=== PATIENT | male | born 1950 | race Caucasian/White ===

== ENCOUNTER 2020-01-24 17:15 | Inpatient (IN) ==
[2020-01-24] MEDS ORDERED: Ondansetron 4 MG/2 ML VIAL IVP ONE (17:42)
[2020-01-24] MEDS ORDERED: Ketorolac 15 MG/ML VIAL IVP ONE (17:42)
[2020-01-24] MEDS ORDERED: 0.9 % Sodium Chloride 1,000 ML IVC ONE (17:42)
[2020-01-24 18:29] LABS: Hematocrit 27.5 % (37.5-50.1); Hemoglobin 9.4 g/dL (12.9-16.9); Immature Granulocytes % 0.7 % (0-4); Lymphocytes % 9.5 %; Mean Corpuscular HGB Conc 34.2 g/dL (31.6-35.5); Mean Corpuscular Hemoglobin 34.1 pg (28.0-33.3); Mean Corpuscular Volume 99.6 fL (83.0-100.0); Red Blood Count 2.76 M/mcL (4.19-5.50); Red Cell Distribution Width 13.2 % (11.5-14.5)
[2020-01-24 18:31] LABS: Immature Platelets 6.5 % (1.1-6.1); Lymphocytes # 0.6 K/mcL (0.6-4.6); Mean Platelet Volume 11.6 fL (9.4-12.4); Monocytes # 0.2 K/mcL (0.0-1.3); Monocytes % 2.7 %; Neutrophils # 5.1 K/mcL (1.6-8.9); Segmented Neutrophils % 87.1 %; White Blood Count 5.8 K/mcL (4.3-11.1)
[2020-01-24 18:37] LABS: Platelet Count 86 K/mcL (140-400)
[2020-01-24 18:54] LABS: Albumin 3.5 g/dL (3.5-5.7); Albumin/Globulin Ratio 1.2 (1.1-2.2); Bilirubin,Total 1.4 mg/dL (0.3-1.0); Calcium 8.1 mg/dL (8.6-10.3); Potassium 2.9 mEq/L (3.5-5.1); Total Protein 6.5 g/dL (6.4-8.9); Troponin I 0.2 ng/mL (< 0.04)
[2020-01-24] MEDS ORDERED: Potassium Chloride Elixir 20 MEQ/15 ML UDC PO ONE (19:36)
[2020-01-24] MEDS ORDERED: Heparin 25,000UNIT/250ML 1/2NS 25,000 UNIT/250 ML IV.SOLN IVC SCH (19:45)
[2020-01-24] MEDS ORDERED: *HR* Heparin 5,000 UNIT/ML VIAL IVP PRN ×4 (19:45→19:53)
[2020-01-24] MEDS ORDERED: *HR* Heparin 5,000 UNIT/ML VIAL IVP ONE ×2 (19:45→19:53)
[2020-01-24] MEDS ORDERED: Ondansetron 4 MG/2 ML VIAL IVP PRN (20:36)
[2020-01-24] MEDS ORDERED: Naloxone 0.4 MG/ML INJ IVP PRN (20:36)
[2020-01-24] MEDS ORDERED: 0.9 % Sodium Chloride 1,000 ML IVC SCH (21:00)
[2020-01-24] MEDS: Heparin 25,000UNIT/250ML 1/2NS 25,000 UNIT/250 ML IV.SOLN IVC SCH (21:02)
[2020-01-24 21:27] LABS: Heparin anti-factor XA UFH < 0.04 IU/mL (0.30-0.70)
[2020-01-24 21:28] LABS: INR 1.3; Prothrombin Time 14.9 Seconds (9.4-12.1)
[2020-01-24 21:49] LABS: Adenovirus Not Detected (Not Detect); Coronavirus 229E Not Detected (Not Detect); Coronavirus HKU1 Not Detected (Not Detect); Coronavirus NL63 Not Detected (Not Detect); Coronavirus OC43 Not Detected (Not Detect)
[2020-01-24 21:52] LABS: Bordetella Pertussis Not Detected (Not Detect); Chlamydophila pneumoniae Not Detected (Not Detect); Human Metapneumovirus Not Detected (Not Detect); Human Rhinovirus/Enterovirus Not Detected (Not Detect); Influenza A Subtype 2009 H1 Not Detected (Not Detect); Influenza B Not Detected (Not Detect); Mycoplasma pneumoniae Not Detected (Not Detect); Parainfluenza Virus 1 Not Detected (Not Detect); Parainfluenza Virus 2 Not Detected (Not Detect); Parainfluenza Virus 3 Not Detected (Not Detect); Parainfluenza Virus 4 Not Detected (Not Detect); Respiratory Syncytial Virus Not Detected (Not Detect); SARS-CoV-2 DETECTED (Not Detect)
[2020-01-25 00:09] LABS: Sodium, Urine 24.3 mEq/L
[2020-01-25 00:10] LABS: Protein/Creatinine Ratio,Urine 1.21 mg/mg (0.00-0.20)
[2020-01-25 01:08] LABS: Hematocrit 25.4 % (37.5-50.1); Hemoglobin 8.6 g/dL (12.9-16.9); Immature Granulocytes % 0.6 % (0-4); Immature Platelets 5.4 % (1.1-6.1); Immature Reticulocyte % 13.4 % (11.0-38.0); Lymphocytes # 0.7 K/mcL (0.6-4.6); Mean Corpuscular HGB Conc 33.9 g/dL (31.6-35.5); Mean Corpuscular Hemoglobin 34.4 pg (28.0-33.3); Mean Corpuscular Volume 101.6 fL (83.0-100.0); Mean Platelet Volume 11.1 fL (9.4-12.4); Monocytes # 0.2 K/mcL (0.0-1.3); Monocytes % 2.9 %; Neutrophils # 4.3 K/mcL (1.6-8.9); Nucleated Red Blood Cells 0.4 /100 WBC (0); Platelet Count 76 K/mcL (140-400); Red Cell Distribution Width 13.4 % (11.5-14.5); Retculocyte # 0.02 M/mcL (0.05-0.10); Reticulocyte % 0.9 % (1.6-2.8); Segmented Neutrophils % 83.5 %; White Blood Count 5.2 K/mcL (4.3-11.1)
[2020-01-25 01:28] LABS: Albumin 3.1 g/dL (3.5-5.7); Albumin/Globulin Ratio 1.2 (1.1-2.2); Bilirubin,Total 1.1 mg/dL (0.3-1.0); Calcium 7.7 mg/dL (8.6-10.3); Globulin 2.6 g/dL (2.4-3.5); Potassium 3.3 mEq/L (3.5-5.1); Total Protein 5.7 g/dL (6.4-8.9)
[2020-01-25] MEDS: Acetaminophen 325 MG TABLET PO PRN ×2 (01:34→09:14)
[2020-01-25 04:51] LABS: Troponin I 0.17 ng/mL (< 0.04)
[2020-01-25] MEDS: amLODIPine 5 MG TABLET PO SCH (08:48)
[2020-01-25 08:53] LABS: Bacteria,Urine Few per hpf (None-Few); Bilirubin,Urine Negative (Negative); Blood,Urine Large (Negative); Clarity,Urine Turbid (Clear); Color,Urine Yellow (Yellow); Glucose,Urine (UA) Normal (Normal); Ketones,Urine Negative (Negative); Leukocyte Esterase,Urine Negative (Negative); Mucus,Urine Few per lpf (None-Few); Nitrite,Urine Negative (Negative); Protein,Urine 100 mg/dL (Neg-Trace); RBC,Urine 0-3 per hpf (0-3); Urobilinogen,Urine Normal (Normal)
[2020-01-25] MEDS ORDERED: Acetaminophen 325 MG TABLET PO PRN (10:46)
[2020-01-25 11:20] LABS: Uric Acid 9.2 mg/dL (2.3-7.6)
[2020-01-25] MEDS ORDERED: 0.9 % Sodium Chloride 1,000 ML IVC SCH (15:00)
[2020-01-25] MEDS: Aspirin Enteric Coated 81 MG Tablet PO SCH (15:30)
[2020-01-25 17:54] LABS: Hepatitis B Surface Antigen Nonreactive (Nonreactive)
[2020-01-25] MEDS: *HR* OxyCODONE/APAP 5/325 TABLET PO PRN (18:01)
[2020-01-25 18:23] LABS: Hepatitis A Antibody IgM Nonreactive (Nonreactive); Hepatitis B Core IgM Nonreactive (Nonreactive); Hepatitis C Virus Antibody Nonreactive (Nonreactive)
[2020-01-25] MEDS: Heparin 25,000UNIT/250ML 1/2NS 25,000 UNIT/250 ML IV.SOLN IVC SCH (22:46)
[2020-01-26] MEDS: *HR* OxyCODONE/APAP 5/325 TABLET PO PRN ×2 (05:57→12:57)
[2020-01-26 07:27] LABS: Eosinophils % 0.3 %
[2020-01-26 07:28] LABS: Hematocrit 23.7 % (37.5-50.1); Immature Granulocytes % 0.6 % (0-4); Immature Platelets 5.4 % (1.1-6.1); Lymphocytes # 0.7 K/mcL (0.6-4.6); Mean Corpuscular HGB Conc 33.8 g/dL (31.6-35.5); Mean Corpuscular Hemoglobin 34.5 pg (28.0-33.3); Mean Corpuscular Volume 102.2 fL (83.0-100.0); Monocytes # 0.1 K/mcL (0.0-1.3); Red Blood Count 2.32 M/mcL (4.19-5.50); Red Cell Distribution Width 13.7 % (11.5-14.5); Segmented Neutrophils % 73.1 %; White Blood Count 3.2 K/mcL (4.3-11.1)
[2020-01-26 07:30] LABS: Neutrophils # 2.3 K/mcL (1.6-8.9); Platelet Count 75 K/mcL (140-400)
[2020-01-26 07:34] LABS: Calcium 7.9 mg/dL (8.6-10.3); Magnesium 2.6 mg/dL (1.6-2.6); Potassium 3.2 mEq/L (3.5-5.1)
[2020-01-26 08:48] LABS: Folate 19.6 ng/mL (3.0-16.0)
[2020-01-26] MEDS: Aspirin Enteric Coated 81 MG Tablet PO SCH (09:13)
[2020-01-26] MEDS: amLODIPine 5 MG TABLET PO SCH (09:14)
[2020-01-26 11:52] LABS: Complement C3 144 mg/dL (87-200)
[2020-01-26] MEDS: Dexamethasone 4 MG/ML VIAL IVP SCH (12:56)
[2020-01-26] MEDS: *HR* Heparin 5,000 UNIT/ML VIAL SQ SCH ×2 (12:57→22:25)
[2020-01-27] MEDS: *HR* Heparin 5,000 UNIT/ML VIAL SQ SCH (01:54)
[2020-01-27 04:53] LABS: Monocytes % 4.1 %
[2020-01-27 04:55] LABS: Basophils % 0.4 %; Hematocrit 24.2 % (37.5-50.1); Immature Granulocytes % 1.5 % (0-4); Lymphocytes # 0.4 K/mcL (0.6-4.6); Mean Corpuscular HGB Conc 33.1 g/dL (31.6-35.5); Mean Corpuscular Hemoglobin 33.8 pg (28.0-33.3); Mean Corpuscular Volume 102.1 fL (83.0-100.0); Mean Platelet Volume 12.1 fL (9.4-12.4); Monocytes # 0.1 K/mcL (0.0-1.3); Neutrophils # 2.1 K/mcL (1.6-8.9); Red Blood Count 2.37 M/mcL (4.19-5.50); Red Cell Distribution Width 13.3 % (11.5-14.5); White Blood Count 2.7 K/mcL (4.3-11.1)
[2020-01-27 05:00] LABS: Platelet Count 75 K/mcL (140-400)
[2020-01-27 05:10] LABS: Calcium 8.1 mg/dL (8.6-10.3); Magnesium 2.8 mg/dL (1.6-2.6); Potassium 3.8 mEq/L (3.5-5.1)
[2020-01-27 07:24] VITALS: BP 157/75
[2020-01-27] MEDS: Dexamethasone 4 MG/ML VIAL IVP SCH (08:02)
[2020-01-27] MEDS: Aspirin Enteric Coated 81 MG Tablet PO SCH (08:03)
[2020-01-27] MEDS: amLODIPine 5 MG TABLET PO SCH (08:03)
[2020-01-28 12:10] LABS: ANA IgG by ELISA NONE DETECTED (None Detected); Serine Protease-3 Antibody 0 AU/mL (0-19)
== END 2020-01-27 15:30 | disposition home or self-care (01) | DRG 177 ==
LOC: 2NENU 17:15 → EMEROOARM 17:15 → SUATTDRO 20:05 → 2NENU 20:22
PROVIDERS: ADMIT Student in an Organized Health Care Education/Training Program; ATTEND Pharmacist

== ENCOUNTER 2021-06-27 13:05 | Inpatient (IN) ==
[2021-06-27] MEDS ORDERED: 0.9 % Sodium Chloride 1,000 ML IVC ONE (13:38)
[2021-06-27] MEDS ORDERED: Isovue-370 500 ML BOTTLE IVP ONE (13:40)
[2021-06-27 13:53] LABS: Hemoglobin 12.3 g/dL (12.9-16.9); Mean Corpuscular Volume 104.1 fL (83.0-100.0)
[2021-06-27 13:54] LABS: Hematocrit 35.7 % (37.5-50.1); Immature Platelets 3.5 % (1.1-6.1); Mean Corpuscular HGB Conc 34.5 g/dL (31.6-35.5); Mean Corpuscular Hemoglobin 35.9 pg (28.0-33.3); Monocytes # 0.1 K/mcL (0.0-1.3); Red Blood Count 3.43 M/mcL (4.19-5.50); Red Cell Distribution Width 14.4 % (11.5-14.5); White Blood Count 3.6 K/mcL (4.3-11.1)
[2021-06-27 13:55] LABS: Platelet Count 77 K/mcL (140-400)
[2021-06-27 14:04] LABS: INR 1.3; Prothrombin Time 14.7 Seconds (9.4-12.1)
[2021-06-27 14:17] LABS: Lymphocytes # 0.7 K/mcL (0.6-4.6); Neutrophils # 2.8 K/mcL (1.6-8.9)
[2021-06-27 14:24] LABS: Platelet Estimate Decreased (Normal)
[2021-06-27 14:29] LABS: Albumin/Globulin Ratio 1.6 (1.1-2.2); Bilirubin,Direct 0.3 mg/dL (0.0-0.2); Bilirubin,Total 1.3 mg/dL (0.3-1.0); Globulin 2.5 g/dL (2.4-3.5); Magnesium 1.7 mg/dL (1.6-2.6); Potassium 3.6 mEq/L (3.5-5.1); Thyroid Stimulating Hormone 1.609 mcIU/mL (0.340-5.600); Total Protein 6.5 g/dL (6.4-8.9); Troponin I 0.07 ng/mL (< 0.04)
[2021-06-27 15:14] LABS: Bilirubin,Urine Negative (Negative); Blood,Urine Large (Negative); Clarity,Urine Clear (Clear); Color,Urine Light-Yellow (Yellow); Glucose,Urine (UA) Normal (Normal); Ketones,Urine Negative (Negative); Leukocyte Esterase,Urine Negative (Negative); Mucus,Urine Few per lpf (None-Few); Nitrite,Urine Negative (Negative); PH,Urine 6.5 pH Units (5.0-8.0); Protein,Urine 200 mg/dL (Neg-Trace); RBC,Urine 0-3 per hpf (0-3); Specific Gravity,Urine 1.016 (1.010-1.025); Squamous Epithelial Cell,Urine Few per hpf (None-Few); Urobilinogen,Urine Normal (Normal); WBC,Urine 0-3 per hpf (0-3)
[2021-06-27 15:23] LABS: Influenza A PCR Positive (Negative); Influenza B PCR Negative (Negative); Resp. Syncytial Virus PCR Negative (Negative)
[2021-06-27 15:26] LABS: SARS-CoV-2 by PCR (In House) Negative (Negative)
[2021-06-27] MEDS ORDERED: Morphine Sulfate 2 MG/ML SYRINGE IVP ONE (16:46)
[2021-06-27] MEDS ORDERED: Naloxone 0.4 MG/ML INJ IVP PRN (17:36)
[2021-06-27] MEDS ORDERED: Mag Hydrox/Al Hydrox/Simeth 30 ML UDC PO PRN (17:36)
[2021-06-27] MEDS ORDERED: Ondansetron 4 MG/2 ML VIAL IVP PRN (17:36)
[2021-06-27] MEDS ORDERED: Melatonin 3 MG TABLET PO PRN (17:36)
[2021-06-27] MEDS ORDERED: Perflutren Lipid Microsphere 1.3 ML in 0.9 % Sodium Chloride 8.7 ML IVP PRN (17:39)
[2021-06-27] MEDS ORDERED: Azithromycin 500 MG in 0.9 % Sodium Chloride 250 ML IVPB SCH (18:00)
[2021-06-27] MEDS: 0.9 % Sodium Chloride 1,000 ML IVC SCH (18:38)
[2021-06-27] MEDS: cefTRIAXone 1,000 MG in 0.9 % Sodium Chloride 10 ML IVP SCH (18:38)
[2021-06-27] MEDS: Acetaminophen 325 MG TABLET PO PRN (18:38)
[2021-06-27] MEDS ORDERED: *HR* Labetalol 20 MG/4 ML SYRINGE IVP ONE (19:42)
[2021-06-27] MEDS ORDERED: Apixaban 5 MG TABLET PO SCH (21:00)
[2021-06-28] MEDS: Acetaminophen 325 MG TABLET PO PRN ×3 (01:27→19:06)
[2021-06-28] MEDS: *HR* OxyCODONE Immed Rel 5 MG TABLET PO PRN ×2 (01:27→20:46)
[2021-06-28 05:38] LABS: Hematocrit 27.8 % (37.5-50.1); Hemoglobin 9.5 g/dL (12.9-16.9); Immature Granulocytes % 3.2 % (0-4); Immature Platelets 3.6 % (1.1-6.1); Lymphocytes # 0.3 K/mcL (0.6-4.6); Mean Corpuscular HGB Conc 34.2 g/dL (31.6-35.5); Mean Corpuscular Hemoglobin 36.3 pg (28.0-33.3); Mean Corpuscular Volume 106.1 fL (83.0-100.0); Mean Platelet Volume 11.3 fL (9.4-12.4); Monocytes # 0.1 K/mcL (0.0-1.3); Monocytes % 3.9 %; Neutrophils # 2.5 K/mcL (1.6-8.9); Red Blood Count 2.62 M/mcL (4.19-5.50); Red Cell Distribution Width 14.5 % (11.5-14.5); Segmented Neutrophils % 81.9 %; White Blood Count 3.1 K/mcL (4.3-11.1)
[2021-06-28 05:39] LABS: Platelet Count 72 K/mcL (140-400)
[2021-06-28 05:57] LABS: Magnesium 1.7 mg/dL (1.6-2.6); Potassium 3.8 mEq/L (3.5-5.1)
[2021-06-28] MEDS: 0.9 % Sodium Chloride 1,000 ML IVC SCH (07:44)
[2021-06-28] MEDS ORDERED: *HR* Heparin 5,000 UNIT/ML VIAL IVP ONE (08:12)
[2021-06-28] MEDS ORDERED: *HR* Heparin 5,000 UNIT/ML VIAL IVP PRN ×2 (08:12)
[2021-06-28] MEDS ORDERED: Heparin 25,000UNIT/250ML 1/2NS 25,000 UNIT/250 ML IV.SOLN IVC SCH (08:15)
[2021-06-28] MEDS: Metoprolol XL (24 HR) Succ 25 MG TAB.ER.24H PO SCH (08:39)
[2021-06-28] MEDS: cefTRIAXone 1,000 MG in 0.9 % Sodium Chloride 10 ML IVP SCH (08:40)
[2021-06-28] MEDS ORDERED: Vancomycin 1,250 MG/262.5 ML IV.SOLN IVPB ONE (08:59)
[2021-06-28] MEDS: Heparin 25,000UNIT/250ML 1/2NS 25,000 UNIT/250 ML IV.SOLN IVC SCH (09:40)
[2021-06-28] MEDS: amLODIPine 5 MG TABLET PO SCH (09:41)
[2021-06-28 09:46] LABS: Heparin anti-factor XA UFH 0.48 IU/mL (0.30-0.70); INR 1.5; Prothrombin Time 16.9 Seconds (9.4-12.1)
[2021-06-28 10:33] LABS: C-Reactive Protein 285 mg/L (Less than 10); Lactate Dehydrogenase 674 Units/L (140-271)
[2021-06-28] MEDS: Aspirin Enteric Coated 81 MG Tablet PO SCH (13:02)
[2021-06-28] MEDS: Cefepime HCl 1,000 MG in 0.9 % Sodium Chloride 10 ML IVP SCH (16:10)
[2021-06-28 16:39] LABS: Immature Reticulocyte % 4.7 % (11.0-38.0); Retculocyte # 0.05 M/mcL (0.05-0.10); Reticulocyte % 1.7 % (1.6-2.8)
[2021-06-28 17:01] LABS: % Iron Saturation 7 % (20-55); Iron 13 mcg/dL (65-175); Transferrin 135 mg/dL (203-362)
[2021-06-28 17:20] LABS: Ferritin 323 ng/mL (20-250)
[2021-06-29] MEDS: Cefepime HCl 1,000 MG in 0.9 % Sodium Chloride 10 ML IVP SCH ×4 (00:44→23:03)
[2021-06-29] MEDS: amLODIPine 5 MG TABLET PO SCH (08:05)
[2021-06-29] MEDS: Metoprolol XL (24 HR) Succ 25 MG TAB.ER.24H PO SCH (08:05)
[2021-06-29] MEDS: Aspirin Enteric Coated 81 MG Tablet PO SCH (08:05)
[2021-06-29 08:38] LABS: Basophils % 0.4 %; Hematocrit 26.9 % (37.5-50.1); Hemoglobin 8.9 g/dL (12.9-16.9); Immature Granulocytes % 0.8 % (0-4); Immature Platelets 5.2 % (1.1-6.1); Lymphocytes # 0.6 K/mcL (0.6-4.6); Lymphocytes % 22.1 %; Mean Corpuscular HGB Conc 33.1 g/dL (31.6-35.5); Mean Corpuscular Hemoglobin 35.2 pg (28.0-33.3); Mean Corpuscular Volume 106.3 fL (83.0-100.0); Mean Platelet Volume 11.6 fL (9.4-12.4); Monocytes # 0.1 K/mcL (0.0-1.3); Monocytes % 3.8 %; Neutrophils # 1.9 K/mcL (1.6-8.9); Platelet Count 66 K/mcL (140-400); Red Blood Count 2.53 M/mcL (4.19-5.50); Red Cell Distribution Width 14.6 % (11.5-14.5); Segmented Neutrophils % 72.9 %; White Blood Count 2.6 K/mcL (4.3-11.1)
[2021-06-29 08:46] LABS: Albumin 3.1 g/dL (3.5-5.7); Albumin/Globulin Ratio 1.3 (1.1-2.2); Bilirubin,Total 0.8 mg/dL (0.3-1.0); Calcium 8.3 mg/dL (8.6-10.3); Globulin 2.4 g/dL (2.4-3.5); Potassium 3.7 mEq/L (3.5-5.1); Total Protein 5.5 g/dL (6.4-8.9)
[2021-06-29] MEDS ORDERED: Vancomycin 1,250 MG/262.5 ML IV.SOLN IVPB SCH (10:00)
[2021-06-29] MEDS: Heparin 25,000UNIT/250ML 1/2NS 25,000 UNIT/250 ML IV.SOLN IVC SCH (10:21)
[2021-06-29 17:17] LABS: Hemoglobin 9.2 g/dL (12.9-16.9); Mean Corpuscular Volume 106.9 fL (83.0-100.0)
[2021-06-29 17:19] LABS: Basophils % 0.4 %; Hematocrit 27.7 % (37.5-50.1); Immature Granulocytes % 1.1 % (0-4); Immature Platelets 4.9 % (1.1-6.1); Mean Corpuscular HGB Conc 33.2 g/dL (31.6-35.5); Mean Corpuscular Hemoglobin 35.5 pg (28.0-33.3); Mean Platelet Volume 11.3 fL (9.4-12.4); Monocytes # 0.1 K/mcL (0.0-1.3); Monocytes % 3.5 %; Red Blood Count 2.59 M/mcL (4.19-5.50); Red Cell Distribution Width 14.4 % (11.5-14.5); White Blood Count 2.8 K/mcL (4.3-11.1)
[2021-06-29 17:27] LABS: Lymphocytes # 0.6 K/mcL (0.6-4.6); Platelet Count 76 K/mcL (140-400)
[2021-06-29 17:42] LABS: Platelet Estimate Decreased (Normal)
[2021-06-29] MEDS: *HR* OxyCODONE Immed Rel 5 MG TABLET PO PRN (19:58)
[2021-06-30 00:23] LABS: Eosinophils % 0.4 %; Hemoglobin 8.8 g/dL (12.9-16.9); Red Cell Distribution Width 14.3 % (11.5-14.5)
[2021-06-30 00:25] LABS: Basophils % 0.4 %; Hematocrit 26.1 % (37.5-50.1); Immature Granulocytes % 1.2 % (0-4); Immature Platelets 4.9 % (1.1-6.1); Lymphocytes # 0.7 K/mcL (0.6-4.6); Lymphocytes % 28.3 %; Mean Corpuscular HGB Conc 33.7 g/dL (31.6-35.5); Mean Corpuscular Hemoglobin 35.5 pg (28.0-33.3); Mean Corpuscular Volume 105.2 fL (83.0-100.0); Mean Platelet Volume 11.4 fL (9.4-12.4); Monocytes # 0.1 K/mcL (0.0-1.3); Monocytes % 4.7 %; Neutrophils # 1.7 K/mcL (1.6-8.9); Platelet Count 76 K/mcL (140-400); Red Blood Count 2.48 M/mcL (4.19-5.50); White Blood Count 2.6 K/mcL (4.3-11.1)
[2021-06-30 00:37] LABS: Albumin/Globulin Ratio 1.2 (1.1-2.2); Bilirubin,Total 0.7 mg/dL (0.3-1.0); Globulin 2.6 g/dL (2.4-3.5); Potassium 3.7 mEq/L (3.5-5.1); Total Protein 5.6 g/dL (6.4-8.9)
[2021-06-30] MEDS: amLODIPine 5 MG TABLET PO SCH (07:35)
[2021-06-30] MEDS: Cefepime HCl 1,000 MG in 0.9 % Sodium Chloride 10 ML IVP SCH ×3 (07:36→23:27)
[2021-06-30] MEDS: Metoprolol XL (24 HR) Succ 25 MG TAB.ER.24H PO SCH (07:36)
[2021-06-30] MEDS: Aspirin Enteric Coated 81 MG Tablet PO SCH (07:36)
[2021-06-30] MEDS: Heparin 25,000UNIT/250ML 1/2NS 25,000 UNIT/250 ML IV.SOLN IVC SCH (09:38)
[2021-06-30] MEDS: *HR* OxyCODONE Immed Rel 5 MG TABLET PO PRN (19:38)
[2021-06-30] MEDS ORDERED: Benzonatate 100 MG CAPSULE PO PRN (21:00)
[2021-07-01 01:25] LABS: Hemoglobin 8.7 g/dL (12.9-16.9); Lymphocytes % 28.7 %; Mean Corpuscular HGB Conc 33.5 g/dL (31.6-35.5); Mean Corpuscular Hemoglobin 34.9 pg (28.0-33.3); Mean Corpuscular Volume 104.4 fL (83.0-100.0); Mean Platelet Volume 11.2 fL (9.4-12.4); Red Blood Count 2.49 M/mcL (4.19-5.50); Red Cell Distribution Width 13.8 % (11.5-14.5); Segmented Neutrophils % 62.6 %
[2021-07-01 01:26] LABS: Basophils % 0.3 %; Eosinophils % 0.7 %; Lymphocytes # 0.9 K/mcL (0.6-4.6); Monocytes # 0.2 K/mcL (0.0-1.3); Monocytes % 5.7 %; Neutrophils # 1.9 K/mcL (1.6-8.9)
[2021-07-01 01:27] LABS: Platelet Count 79 K/mcL (140-400)
[2021-07-01 01:54] LABS: Albumin/Globulin Ratio 1.2 (1.1-2.2); Bilirubin,Total 0.9 mg/dL (0.3-1.0); Calcium 8.4 mg/dL (8.6-10.3); Globulin 2.6 g/dL (2.4-3.5); Potassium 4.8 mEq/L (3.5-5.1); Total Protein 5.6 g/dL (6.4-8.9)
[2021-07-01 07:30] LABS: Kappa Qnt Free Light Chains 40.97 mg/L (3.30-19.40); Lambda Qnt Free Light Chains 25.28 mg/L (5.71-26.30)
[2021-07-01] MEDS: *HR* OxyCODONE Immed Rel 5 MG TABLET PO PRN (08:11)
[2021-07-01] MEDS: Cefepime HCl 1,000 MG in 0.9 % Sodium Chloride 10 ML IVP SCH (08:12)
[2021-07-01] MEDS: Aspirin Enteric Coated 81 MG Tablet PO SCH (08:12)
[2021-07-01] MEDS: Metoprolol XL (24 HR) Succ 25 MG TAB.ER.24H PO SCH (08:12)
[2021-07-01] MEDS: amLODIPine 5 MG TABLET PO SCH (08:12)
[2021-07-01] MEDS: Heparin 25,000UNIT/250ML 1/2NS 25,000 UNIT/250 ML IV.SOLN IVC SCH (08:25)
[2021-07-01 10:59] VITALS: BP 182/81; PULSE 55; TEMP 98; O2SAT 96
[2021-07-03 00:13] LABS: Alpha 2 Globulin (PEP) 0.57 g/dL (0.48-1.05); Beta Globulin (PEP) 0.66 g/dL (0.48-1.10)
[2021-07-03 10:50] LABS: IFE Reflexed IFE Done; Immunoglobulin G 532 mg/dL (768-1632)
[2021-07-03 10:51] LABS: Immunoglobulin A 230 mg/dL (68-408); Immunoglobulin M 39 mg/dL (35-263)
== END 2021-07-01 13:30 | disposition left against medical advice (07) | DRG 871 ==
LOC: 3BNU 13:05 → EMEROOARM 13:05 → 3BNU 18:04 → SUATTDRO 06-28 11:10 → 3NENU 06-28 18:11
PROVIDERS: ADMIT Nurse Practitioner; ATTEND Nurse Practitioner

== ENCOUNTER 2021-12-01 05:26 | Inpatient (IN) ==
[2021-12-01 05:55] LABS: Basophils % 0.5 %; Eosinophils # 0.1 K/mcL (0.0-0.6); Eosinophils % 1.1 %; Hematocrit 32.8 % (37.5-50.1); Hemoglobin 10.7 g/dL (12.9-16.9); Immature Granulocytes % 0.8 % (0-4); Lymphocytes # 1.2 K/mcL (0.6-4.6); Lymphocytes % 19.9 %; Mean Corpuscular HGB Conc 32.6 g/dL (31.6-35.5); Mean Corpuscular Hemoglobin 35.4 pg (28.0-33.3); Mean Corpuscular Volume 108.6 fL (83.0-100.0); Mean Platelet Volume 9.5 fL (9.4-12.4); Monocytes # 0.3 K/mcL (0.0-1.3); Monocytes % 5.2 %; Neutrophils # 4.5 K/mcL (1.6-8.9); Platelet Count 147 K/mcL (140-400); Red Blood Count 3.02 M/mcL (4.19-5.50); Red Cell Distribution Width 16.3 % (11.5-14.5); Segmented Neutrophils % 72.5 %; White Blood Count 6.2 K/mcL (4.3-11.1)
[2021-12-01 06:16] LABS: Albumin 4.6 g/dL (3.5-5.7); Albumin/Globulin Ratio 1.8 (1.1-2.2); Bilirubin,Direct 0.2 mg/dL (0.0-0.2); Bilirubin,Indirect 0.7 mg/dL (0.0-1.0); Bilirubin,Total 0.9 mg/dL (0.3-1.0); Calcium 9.7 mg/dL (8.6-10.3); Globulin 2.6 g/dL (2.4-3.5); Potassium 4.1 mEq/L (3.5-5.1); Total Protein 7.2 g/dL (6.4-8.9)
[2021-12-01] MEDS ORDERED: Morphine Sulfate 2 MG/ML SYRINGE IVP ONE (07:23)
[2021-12-01 07:33] LABS: Troponin I 0.05 ng/mL (< 0.04)
[2021-12-01] MEDS ORDERED: Iopamidol - 370 500 ML MLS IVP ONE (07:35)
[2021-12-01 07:51] LABS: INR 1.2; Prothrombin Time 13.5 Seconds (9.4-12.1)
[2021-12-01] MEDS ORDERED: *HR* HYDROmorphone (PF) 1 MG/ML SYRINGE IVP ONE ×2 (08:36→14:25)
[2021-12-01] MEDS ORDERED: Mag Hydrox/Al Hydrox/Simeth 30 ML UDC PO PRN (11:31)
[2021-12-01] MEDS ORDERED: Famotidine 20 MG/2 ML VIAL IVP ONE (11:31)
[2021-12-01 14:04] LABS: Bilirubin,Urine Negative (Negative); Blood,Urine Negative (Negative); Clarity,Urine Clear (Clear); Color,Urine Colorless (Yellow); Glucose,Urine (UA) Normal (Normal); Ketones,Urine Negative (Negative); Leukocyte Esterase,Urine Negative (Negative); Mucus,Urine Few per lpf (None-Few); Nitrite,Urine Negative (Negative); PH,Urine 6.5 pH Units (5.0-8.0); Protein,Urine 30 mg/dL (Neg-Trace); RBC,Urine 0-3 per hpf (0-3); Specific Gravity,Urine 1.023 (1.010-1.025); Urobilinogen,Urine Normal (Normal); WBC,Urine 0-3 per hpf (0-3)
[2021-12-01] MEDS ORDERED: *HR* HYDROmorphone (PF) 1 MG/ML SYRINGE IVP PRN (15:05)
[2021-12-01] MEDS ORDERED: *HR* HYDROmorphone (PF) 1 MG/ML SYRINGE IVP STA (16:01)
[2021-12-01] MEDS ORDERED: Piperacillin/Tazobactam 3.375 GM in 0.9 % Sodium Chloride Mini Bag 100 ML IVPB ONE (16:03)
[2021-12-01] MEDS ORDERED: Sennosides/Docusate Sodium TABLET PO PRN (16:04)
[2021-12-01] MEDS ORDERED: *HR* OxyCODONE Immed Rel 5 MG TABLET PO PRN (16:10)
[2021-12-01] MEDS ORDERED: Ondansetron 4 MG/2 ML VIAL IVP PRN (16:12)
[2021-12-01] MEDS: *HR* HYDROmorphone (PF) 1 MG/ML SYRINGE IVP PRN (20:04)
[2021-12-01] MEDS ORDERED: Naloxone 0.4 MG/ML INJ IVP PRN (20:23)
[2021-12-01 22:32] LABS: % Iron Saturation 8 % (20-55); Iron 23 mcg/dL (65-175); Transferrin 204 mg/dL (203-362)
[2021-12-01 22:36] LABS: Acetaminophen < 10 mcg/mL (10-20); C-Reactive Protein 29 mg/L (Less than 10); Salicylate < 2.5 mg/dL (15.0-30.0)
[2021-12-01 22:47] LABS: Thyroid Stimulating Hormone 1.271 mcIU/mL (0.340-5.600)
[2021-12-01] MEDS ORDERED: *HR* Labetalol 20 MG/4 ML SYRINGE IVP ONE (23:36)
[2021-12-01] MEDS: Piperacillin/Tazobactam 3.375 GM in 0.9 % Sodium Chloride Mini Bag 100 ML IVPB SCH (23:54)
[2021-12-02] MEDS: *HR* HYDROmorphone (PF) 1 MG/ML SYRINGE IVP PRN ×2 (00:31→04:48)
[2021-12-02 03:39] LABS: INR 1.3
[2021-12-02 03:46] LABS: Hepatitis B Surface Antigen Nonreactive (Nonreactive)
[2021-12-02] MEDS: *HR* OxyCODONE Immed Rel 5 MG TABLET PO PRN ×5 (03:50→23:08)
[2021-12-02 03:59] LABS: Albumin/Globulin Ratio 1.7 (1.1-2.2); Bilirubin,Direct 0.4 mg/dL (0.0-0.2); Bilirubin,Indirect 1.1 mg/dL (0.0-1.0); Bilirubin,Total 1.5 mg/dL (0.3-1.0); Globulin 2.3 g/dL (2.4-3.5); Total Protein 6.3 g/dL (6.4-8.9)
[2021-12-02 04:15] LABS: Hepatitis B Core IgM Nonreactive (Nonreactive)
[2021-12-02 04:16] LABS: Hepatitis A Antibody IgM Nonreactive (Nonreactive); Hepatitis C Virus Antibody Nonreactive (Nonreactive)
[2021-12-02] MEDS: Piperacillin/Tazobactam 3.375 GM in 0.9 % Sodium Chloride Mini Bag 100 ML IVPB SCH ×3 (07:42→23:07)
[2021-12-02] MEDS ORDERED: Metoprolol XL (24 HR) Succ 50 MG TAB.ER.24H PO SCH (10:30)
[2021-12-02] MEDS ORDERED: amLODIPine 5 MG TABLET PO SCH (10:30)
[2021-12-02] MEDS ORDERED: *HR* Heparin 5,000 UNIT/ML VIAL IVP ONE (15:40)
[2021-12-02] MEDS ORDERED: *HR* Heparin 5,000 UNIT/ML VIAL IVP PRN ×2 (15:40)
[2021-12-02] MEDS ORDERED: Heparin 25,000UNIT/250ML 1/2NS 25,000 UNIT/250 ML IV.SOLN IVC SCH ×2 (15:45)
[2021-12-02 16:20] LABS: Hematocrit 31.5 % (37.5-50.1); Hemoglobin 10.1 g/dL (12.9-16.9); Mean Corpuscular HGB Conc 32.1 g/dL (31.6-35.5); Mean Corpuscular Hemoglobin 34.2 pg (28.0-33.3); Mean Corpuscular Volume 106.8 fL (83.0-100.0); Mean Platelet Volume 10.3 fL (9.4-12.4); Platelet Count 141 K/mcL (140-400); Red Blood Count 2.95 M/mcL (4.19-5.50); Red Cell Distribution Width 16.1 % (11.5-14.5); White Blood Count 12.3 K/mcL (4.3-11.1)
[2021-12-02 16:23] LABS: INR 1.5; Prothrombin Time 16.8 Seconds (9.4-12.1)
[2021-12-02 17:01] LABS: Activated Partial Thrombo Time 36.5 Seconds (26.0-36.0); Heparin anti-factor XA UFH 0.07 IU/mL (0.30-0.70)
[2021-12-03 01:16] LABS: Basophils % 0.1 %; Eosinophils % 0.1 %; Hematocrit 28.9 % (37.5-50.1); Hemoglobin 9.5 g/dL (12.9-16.9); Immature Granulocytes % 0.5 % (0-4); Lymphocytes # 0.8 K/mcL (0.6-4.6); Lymphocytes % 7.4 %; Mean Corpuscular HGB Conc 32.9 g/dL (31.6-35.5); Mean Corpuscular Hemoglobin 34.9 pg (28.0-33.3); Mean Corpuscular Volume 106.3 fL (83.0-100.0); Mean Platelet Volume 10.2 fL (9.4-12.4); Monocytes # 0.9 K/mcL (0.0-1.3); Neutrophils # 9.2 K/mcL (1.6-8.9); Platelet Count 131 K/mcL (140-400); Red Blood Count 2.72 M/mcL (4.19-5.50); Red Cell Distribution Width 16.2 % (11.5-14.5); Segmented Neutrophils % 83.9 %
[2021-12-03 01:24] LABS: White Blood Count 10.9 K/mcL (4.3-11.1)
[2021-12-03 01:29] LABS: Calcium 8.9 mg/dL (8.6-10.3); Potassium 3.8 mEq/L (3.5-5.1)
[2021-12-03] MEDS: Piperacillin/Tazobactam 3.375 GM in 0.9 % Sodium Chloride Mini Bag 100 ML IVPB SCH ×2 (08:24→18:12)
[2021-12-03] MEDS ORDERED: NON-FORMULARY MEDICATION 1 EACH EACH (Pantoprazole Sodium [Protonix] 40 MG Tablet.Dr) PO SCH (09:00)
[2021-12-03] MEDS ORDERED: amLODIPine 5 MG TABLET PO SCH (09:00)
[2021-12-03] MEDS ORDERED: Metoprolol XL (24 HR) Succ 50 MG TAB.ER.24H PO SCH ×2 (09:00→10:45)
[2021-12-03] MEDS: *HR* HYDROmorphone (PF) 1 MG/ML SYRINGE IVP PRN (09:37)
[2021-12-03] MEDS ORDERED: 0.9 % Sodium Chloride 1,000 ML IVC SCH (12:00)
[2021-12-03] MEDS ORDERED: *HR* Propofol 200 MG/20 ML VIAL IVP ONE (13:48)
[2021-12-03] MEDS ORDERED: *HR* FentaNYL (PF) 100 MCG/2 ML VIAL ONE ×2 (13:49→15:12)
[2021-12-03] MEDS ORDERED: Ondansetron 4 MG/2 ML VIAL ONE (13:54)
[2021-12-03] MEDS ORDERED: *HR* Succinylcholine 200 MG/10 ML VIAL IVP ONE (13:54)
[2021-12-03] MEDS ORDERED: Lidocaine -MPF 2% 5 ML VIAL ONE (13:54)
[2021-12-03] MEDS ORDERED: Lidocaine HCL 4 ML Topical Solution (Laryng-O-Jet Kit Sterile Pak) TP ONE (13:54)
[2021-12-03] MEDS ORDERED: *HR* Rocuronium Bromide 50 MG/5 ML VIAL ONE (13:54)
[2021-12-03] MEDS ORDERED: Iopamidol - 300 50 ML VIAL ONE (14:03)
[2021-12-03] MEDS ORDERED: *HR* FentaNYL (PF) 100 MCG/2 ML VIAL IVP PRN (14:21)
[2021-12-03] MEDS ORDERED: EPHEDrine 50 MG/ML VIAL ONE (14:56)
[2021-12-03] MEDS ORDERED: Sugammadex Sodium 200 MG/2 ML VIAL IV ONE (15:27)
[2021-12-03] MEDS ORDERED: Ondansetron 4 MG/2 ML VIAL IVP PRN (17:13)
[2021-12-03] MEDS ORDERED: Sennosides/Docusate Sodium TABLET PO PRN (17:13)
[2021-12-03] MEDS ORDERED: Mag Hydrox/Al Hydrox/Simeth 30 ML UDC PO PRN (17:13)
[2021-12-03] MEDS ORDERED: *HR* OxyCODONE Immed Rel 5 MG TABLET PO PRN (17:13)
[2021-12-03] MEDS ORDERED: *HR* HYDROmorphone (PF) 1 MG/ML SYRINGE IVP PRN (17:13)
[2021-12-03] MEDS ORDERED: Naloxone 0.4 MG/ML INJ IVP PRN (17:13)
[2021-12-03] MEDS: Metoprolol XL (24 HR) Succ 50 MG TAB.ER.24H PO SCH (20:12)
[2021-12-03] MEDS: *HR* OxyCODONE Immed Rel 5 MG TABLET PO PRN (20:12)
[2021-12-04] MEDS: *HR* OxyCODONE Immed Rel 5 MG TABLET PO PRN ×2 (00:46→16:39)
[2021-12-04] MEDS: Piperacillin/Tazobactam 3.375 GM in 0.9 % Sodium Chloride Mini Bag 100 ML IVPB SCH ×2 (00:47→08:02)
[2021-12-04] MEDS: Metoprolol XL (24 HR) Succ 50 MG TAB.ER.24H PO SCH (08:04)
[2021-12-04 08:36] LABS: Hematocrit 24.5 % (37.5-50.1); Immature Granulocytes % 0.5 % (0-4); Lymphocytes # 0.4 K/mcL (0.6-4.6); Lymphocytes % 6.5 %; Mean Corpuscular HGB Conc 32.2 g/dL (31.6-35.5); Mean Corpuscular Hemoglobin 34.3 pg (28.0-33.3); Mean Corpuscular Volume 106.5 fL (83.0-100.0); Mean Platelet Volume 10.4 fL (9.4-12.4); Monocytes # 0.2 K/mcL (0.0-1.3); Monocytes % 3.6 %; Neutrophils # 5.9 K/mcL (1.6-8.9); Platelet Count 121 K/mcL (140-400); Red Cell Distribution Width 15.3 % (11.5-14.5); Segmented Neutrophils % 89.4 %; White Blood Count 6.6 K/mcL (4.3-11.1)
[2021-12-04 08:40] LABS: Hemoglobin 7.9 g/dL (12.9-16.9)
[2021-12-04 08:57] LABS: Albumin 3.4 g/dL (3.5-5.7); Albumin/Globulin Ratio 1.4 (1.1-2.2); Bilirubin,Total 1.2 mg/dL (0.3-1.0); Calcium 8.9 mg/dL (8.6-10.3); Globulin 2.5 g/dL (2.4-3.5); Potassium 4.1 mEq/L (3.5-5.1); Total Protein 5.9 g/dL (6.4-8.9)
[2021-12-04] MEDS ORDERED: amLODIPine 5 MG TABLET PO SCH (09:00)
[2021-12-04 12:25] LABS: Albumin 3.6 g/dL (3.5-5.7); Albumin/Globulin Ratio 1.6 (1.1-2.2); Bilirubin,Indirect 1.6 mg/dL (0.0-1.0); Bilirubin,Total 2.6 mg/dL (0.3-1.0); Globulin 2.3 g/dL (2.4-3.5); Total Protein 5.9 g/dL (6.4-8.9)
[2021-12-04 16:40] VITALS: BP 107/63; PULSE 59; TEMP 97.9; O2SAT 95
== END 2021-12-04 17:24 | disposition home or self-care (01) | DRG 417 ==
LOC: EMEROOARM 05:26 → 3ANU 05:26 → SUATTDRO 13:51 → 3ANU 15:15 → SUATTDRO 12-02 15:33
PROVIDERS: ADMIT Student in an Organized Health Care Education/Training Program; ATTEND Internal Medicine